=== PATIENT | male | born 1965 | race Caucasian/White ===

== ENCOUNTER 2023-05-21 07:59 | Outpatient (CLI) | payer BC, SELFPAY ==
[2023-05-21 17:39] LABS: Basophils Absolute Auto 0.1 K/mm3 (0.0-0.1); Basophils Percent Auto 0.8 % (0.2-1.2); Eosinophils Absolute Auto 0.2 K/mm3 (0-0.3); Eosinophils Percent Auto 1.9 % (0-4.4); Hemoglobin 11.7 g/dL (14.0-18.0); Immature Granulocyte Absolute 0.02 K/mm3 (0.00-0.031); Immature Granulocyte Percent A 0.2 % (0-0.5); Lymphocytes Absolute Auto 1.35 K/mm3 (0.9-3.2); Lymphocytes Percent Auto 16.1 % (18.3-44.2); Mean Corpuscular HGB Conc 33.4 g/dl (32-36); Mean Corpuscular Hemoglobin 31.8 pg (26-34); Mean Corpuscular Volume 95.1 fl (80-100); Mean Platelet Volume 9.3 fl (7.4-10.4); Monocytes Absolute Auto 0.7 K/mm3 (0.1-0.6); Monocytes Percent Auto 8.3 % (2.6-8.5); Neutrophils Absolute Auto 6.1 K/mm3 (1.3-6.7); Neutrophils Percent Auto 72.7 % (45.5-73.1); Platelet Count Result 355 k/mm3 (150-375); Red Blood Count 3.68 M/mm3 (4.6-6.20); Red Cell Distribution Width 12.1 % (11.5-14.5); White Blood Count 8.4 K/mm3 (4.5-10.0)
[2023-05-21 20:21] LABS: Alanine Aminotransferase 45 U/L (6-50); Albumin Level 4.4 g/dL (3.5-5.1); Alkaline Phosphatase 53 U/L (38-126); Anion Gap 5 mmol/L (8-16); Aspartate Amino Transferase 68 U/L (17-59); Bilirubin,Total 0.3 mg/dL (0.2-1.3); Blood Urea Nitrogen 10 mg/dL (9-20); Calcium 9.1 mg/dL (8.4-10.2); Carbon Dioxide 31 mmol/L (22-30); Chloride 97 mmol/L (98-107); Cholesterol 133 mg/dL (0-200); Estimated Glomerular Filt Rate > 60; Glucose 86 mg/dL (65-110); HDL Direct 49 mg/dL; Potassium 4.4 mmol/L (3.4-5.0); Sodium 133 mmol/L (137-145); Triglycerides 176 mg/dL (<150)
[2023-05-21 20:32] LABS: LDL Cholesterol Direct 50 mg/dL
[2023-05-21 20:52] LABS: Prostate Specific Antigen 0.6 ng/mL (< OR = 4.0)
[2023-05-24 19:38] LABS: Apolipoprotein B 68 mg/dL (<90); CRP, High Sensitivity 6.2 mg/L (***)
[2023-05-26 04:57] LABS: Lipoprotein A 29 nmol/L (<75)
== END 2023-05-21 08:00 | disposition home or self-care (01) ==
LOC: ANHGOSHLAB 08:01
PROVIDERS: PCP Internal Medicine; Visit Provider Internal Medicine
DX: I10 Essential (primary) hypertension (principal); Z13.0 Encounter for screening for diseases of the blood and blood-forming organs and certain disorders involving the immune mechanism; Z13.228 Encounter for screening for other metabolic disorders; Z13.29 Encounter for screening for other suspected endocrine disorder; Z82.49 Family history of ischemic heart disease and other diseases of the circulatory system; Z91.89 Other specified personal risk factors, not elsewhere classified; Z12.5 Encounter for screening for malignant neoplasm of prostate
CPT/HCPCS: 36415; 80053; 80061; 82172; 83695; 84153; 85025; 86141; G0103

== ENCOUNTER 2023-08-14 08:00 | Outpatient (CLI) | payer BC, SELFPAY ==
[2023-08-14 11:38] LABS: Basophils Absolute Auto 0.1 K/mm3 (0.0-0.1); Basophils Percent Auto 1.2 % (0.2-1.2); Eosinophils Absolute Auto 0.1 K/mm3 (0-0.3); Eosinophils Percent Auto 1.9 % (0-4.4); Hematocrit 43.7 % (42.0-52.0); Hemoglobin 14.2 g/dL (14.0-18.0); Immature Granulocyte Absolute 0.02 K/mm3 (0.00-0.031); Immature Granulocyte Percent A 0.3 % (0-0.5); Lymphocytes Absolute Auto 1.33 K/mm3 (0.9-3.2); Lymphocytes Percent Auto 22.8 % (18.3-44.2); Mean Corpuscular HGB Conc 32.5 g/dl (32-36); Mean Corpuscular Hemoglobin 31.6 pg (26-34); Mean Corpuscular Volume 97.1 fl (80-100); Monocytes Absolute Auto 0.5 K/mm3 (0.1-0.6); Monocytes Percent Auto 8.2 % (2.6-8.5); Neutrophils Absolute Auto 3.8 K/mm3 (1.3-6.7); Neutrophils Percent Auto 65.6 % (45.5-73.1); Platelet Count Result 289 k/mm3 (150-375); Red Cell Distribution Width 12.4 % (11.5-14.5); White Blood Count 5.8 K/mm3 (4.5-10.0)
[2023-08-14 12:52] LABS: Alanine Aminotransferase 55 U/L (6-50); Albumin Level 4.6 g/dL (3.5-5.1); Alkaline Phosphatase 48 U/L (38-126); Anion Gap 8 mmol/L (8-16); Aspartate Amino Transferase 81 U/L (17-59); Bilirubin,Total 0.5 mg/dL (0.2-1.3); Blood Urea Nitrogen 14 mg/dL (9-20); Calcium 9.2 mg/dL (8.4-10.2); Carbon Dioxide 31 mmol/L (22-30); Chloride 100 mmol/L (98-107); Estimated Glomerular Filt Rate > 60; Glucose 91 mg/dL (65-110); Potassium 4.8 mmol/L (3.4-5.0); Sodium 139 mmol/L (137-145)
[2023-08-14 13:58] LABS: Folic Acid 5.8 ng/mL (2.76->20)
[2023-08-18 10:20] LABS: CRP, High Sensitivity 0.9 mg/L (***)
== END 2023-08-14 08:01 | disposition home or self-care (01) ==
LOC: ANHGOSHLAB 08:02
PROVIDERS: PCP Internal Medicine; Visit Provider Internal Medicine
DX: D64.9 Anemia, unspecified (principal); E87.1 Hypo-osmolality and hyponatremia; R74.8 Abnormal levels of other serum enzymes; Z91.89 Other specified personal risk factors, not elsewhere classified
CPT/HCPCS: 36415; 80053; 82607; 82728; 82746; 85025; 86141

== ENCOUNTER 2024-08-08 17:08 | Emergency (ER) | payer BC, SELFPAY ==
--- NOTE | ~2024-08-08 | CT_ITS ---
EXAMINATION: CTA chest PE abdomen pel DATE: 08/08/2024 21:52 INDICATION: Chest pain, shortness of breath, dizziness intermittently all summer TECHNIQUE: Computed tomography angiography (CTA) of the chest was performed with 100 mL Omnipaque-350 intravenous contrast timed to evaluate the pulmonary arteries. Coronal maximum intensity projection 3D-reconstructions were created by the technologist. Automated exposure control and iterative reconst ruction technique were employed. Exam dose: 968.86 mGy-cm total exam DLP. COMPARISON: 08/08/2024 PA and lateral chest FINDINGS: There is diagnostic contrast enhancement of the pulmonary arteries and no evidence of pulmo nary embolism. No thoracic aortic aneurysm or dissection. No hilar or mediastinal mass lesion or lymphadenopathy. Normal heart size. No pericardial or pleural effusion. No pulmonary infiltrate or consolidation or pulmonary mass lesion is evident. Mild bilateral gynecomastia. Minimal calcification of the right adrenal gland. Normal morphology of the adrenal glands. No hepatic space-occupying mass lesion. The gallbladder is unremarkable. No bile duct or pancreatic d uct dilatation. No pancreatic mass lesion or calcification. There are multiple calcified splenic gran ulomas. Normal splenic size. No splenic mass lesion. No renal mass lesion or urinary tract calculus or hydroureteronephrosis. The urinary bladder and pros kruse gland are unremarkable. Status post bilateral vasectomy. Small bilateral fat-containing inguinal hernias. Small sliding hiatal hernia. Minimal sigmoid diverticulosis; no CT evidence of diverticulitis. No evidence of appendicitis. No bow el obstruction or intraperitoneal free air. Normal caliber and atherosclerotic calcification of the abdominal aorta. No intraperitoneal or retrop eritoneal or pelvic mass lesion or adenopathy or ascites. Degenerative change of the glenohumeral yen nts and included right acromioclavicular joint. Diffuse idiopathic skeletal hyperostosis of the thoracic spine. No suspicious osteolytic or osteoblastic lesions. IMPRESSION: No evidence of pulmonary embolism Mild bilateral gynecomastia Status post bilateral vasectomy Small sliding hiatal hernia Minimal sigmoid diverticulosis; no evidence of diverticulitis or appendicitis Reviewed, dictated and finalized at [facility]. Reviewed, dictated and finalized at location [facility].
--- NOTE | ~2024-08-08 | XR_ITS ---
XR chest 2V DATE: 08/08/2024 17:58 INDICATION: Chest pain, shortness of breath, dizziness intermittently all summer TECHNIQUE: PA and lateral views COMPARISON: None FINDINGS: Normal heart size. No hilar or mediastinal enlargement. Aortic arch mild calcification. No hilar or mediastinal enlargement. No pulmonary infiltrate or consolidation, pleural effusion or pulmonary vascular congestion or pneumo thorax is detected. Mild degenerative spurring of the thoracic spine. IMPRESSION: No active cardiopulmonary disease Reviewed, dictated and finalized at location [facility].
[2024-08-08 17:22] VITALS: BP 137/109; PULSE 123; RESP 20; TEMP 37.2; O2SAT 100
--- NOTE | 2024-08-08 17:27 | ECG_ITS ---
Test Date: 2024-08-08 17:33:32 Measurements Intervals [place] Rate: 113 P: 120 MO: 163 QRS: 71 QRSD: 75 T: 49 QT: 293 QTc: 402 Interpretive Statements SINUS TACHYCARDIA WITH OCCASIONAL SUPRAVENTRICULAR PREMATURE COMPLEXES BASELINE ARTIFACT- I, II, III, AVR, AVL, V1-V3 ABNORMAL ECG No previous ECG available for comparison Electronically Signed On 08-08-2024 19:57:05 CDT by Vasiliy Rich D.O.
[2024-08-08 17:48] LABS: Basophils Absolute Auto 0.1 K/mm3 (0.0-0.1); Basophils Percent Auto 0.6 % (0.2-1.2); Hematocrit 32.5 % (42.0-52.0); Hemoglobin 10.8 g/dL (14.0-18.0); Immature Granulocyte Absolute 0.07 K/mm3 (0.00-0.031); Immature Granulocyte Percent A 0.5 % (0-0.5); Immature Platelet Fraction Pct 1.7 % (0.9-11.2); Lymphocytes Percent Auto 5.3 % (18.3-44.2); Mean Corpuscular HGB Conc 33.2 g/dl (32-36); Mean Corpuscular Hemoglobin 32.5 pg (26-34); Mean Corpuscular Volume 97.9 fl (80-100); Mean Platelet Volume 9.1 fl (7.4-10.4); Monocytes Absolute Auto 0.5 K/mm3 (0.1-0.6); Neutrophils Absolute Auto 11.9 K/mm3 (1.3-6.7); Neutrophils Percent Auto 89.6 % (45.5-73.1); Platelet Count Result 407 k/mm3 (150-375); Red Blood Count 3.32 M/mm3 (4.6-6.20); Red Cell Distribution Width 13.5 % (11.5-14.5); White Blood Count 13.3 K/mm3 (4.5-10.0)
[2024-08-08 17:56] LABS: INR 1.1; Prothrombin Time 14.2 Seconds (11.1-14.7)
[2024-08-08 17:57] LABS: Partial Thromboplastin Time 31.9 Seconds (22.3-36.8)
[2024-08-08 17:58] LABS: Alanine Aminotransferase 20 U/L (6-50); Alkaline Phosphatase 59 U/L (38-126); Anion Gap 10 mmol/L (4-12); Aspartate Amino Transferase 33 U/L (17-59); Bilirubin,Total 0.7 mg/dL (0.2-1.3); Blood Urea Nitrogen 16 mg/dL (9-20); Calcium 8.5 mg/dL (8.4-10.2); Carbon Dioxide 31 mmol/L (22-30); Chloride 88 mmol/L (98-107); Estimated CRCL calculation 47 ml/min; Estimated Glomerular Filt Rate 45; Glucose 121 mg/dL (65-110); Lipase 57 U/L (23-300); Potassium 3.5 mmol/L (3.4-5.0); Sodium 129 mmol/L (137-145)
[2024-08-08 18:04] LABS: Anisocytosis 1+; Microcytosis 1+ (NORMAL); Platelet Clumps Present; Platelet Estimate Slightly Increased (Adequate); Schistocytes None Seen
[2024-08-08 18:10] LABS: Troponin I < 0.012 ng/mL (0.000-0.034)
[2024-08-08 19:57] VITALS: BP 130/66; PULSE 114; PULSE 117; RESP 19; O2SAT 100; O2SAT 98
[2024-08-08 20:48] LABS: Troponin I < 0.012 ng/mL (0.000-0.034)
--- NOTE | 2024-08-08 21:01 | ECG_ITS ---
Test Date: 2024-08-08 21:01:55 Measurements Intervals [place] Rate: 111 P: 54 MS: 165 QRS: 72 QRSD: 76 T: 61 QT: 329 QTc: 448 Interpretive Statements SINUS TACHYCARDIA ABNORMAL ECG Compared to ECG 08/08/2024 17:33:32 NO SIGNIFICANT CHANGE Electronically Signed On 08-09-2024 10:46:00 CDT by Vasiliy Rich D.O.
--- NOTE | 2024-08-08 21:05 | ED.SOB ---
HPI - SOB/Dyspnea General Chief Complaint: Shortness of Breath/Dyspnea Stated Complaint: SOB and dizziness Time Seen by Provider: 08/08/24 20:18 History of Present Illness HPI Narrative: Patient with history of heavy daily alcohol and tobacco use presents with several months of n/v, epigastric abd pain, and dyspnea on exertion, hasn't been able to keep anything down. Last drink 3 d ago. Related Data Allergies Allergy/AdvReac Type Severity Reaction Status Date / Time No Known Allergies Allergy Unverified 11/04/23 09:04 Review of Systems Review of Systems: All systems reviewed & are unremarkable except as noted in HPI and below PMFSH Past Medical History Medical History Alcohol abuse Anemia Anxiety Coronary artery disease Elevated liver enzymes Family history of premature coronary artery disease Hypertension Hyponatremia Social History Social History Smoking status: Current every day smoker Additional smoking assessment comments: 1/2 pack a day Alcohol intake: current Substance use: never Lack of Transportation: No Lack of Food: Never True Current Housing: I Have Housing Concerned About Future Housing: No Difficulty Paying Gas/Electric Bills: No Difficulty Paying for Meds: No Currently Unemployed: No Education: High School Diploma/GED Difficulty w/ Childcare or Family Care: No Exam Narrative: EXAMINATION OF ORGAN SYSTEMS/BODY AREAS: Constitutional: Vital signs per nursing GENERAL:[No acute distress, non-toxic appearing.] HEAD: Normal with no signs of head trauma. EYES: EOMI, conjunctiva normal ENT: Hearing grossly intact LUNGS: Nonlabored breathing. HEART: Tachycardic ABD: [Soft], [nontender to palpation] EXT: Normal range of motion SKIN: [No rashes or lesions.] NEURO: [Alert and oriented x 3. No gross focal sensory or strength deficits.] Some slight tremors. PSYCH: Normal affect Course Vital Signs Vital signs: Vital Signs Temperature 99 F 08/08/24 17:22 Pulse Rate 123 H 08/08/24 17:22 Respiratory Rate 20 08/08/24 17:22 Blood Pressure 137/109 H 08/08/24 17:22 Pulse Oximetry 100 08/08/24 17:22 Oxygen Delivery Room Air 08/08/24 17:22 Temperature 99 F 08/08/24 17:22 Pulse Rate 99 08/08/24 23:22 Respiratory Rate 17 08/08/24 23:22 Blood Pressure 137/78 08/08/24 23:22 Pulse Oximetry 97 08/08/24 23:22 Oxygen Delivery Room Air 08/08/24 19:57 MDM - SOB/Dyspnea MDM Narrative Medical decision making narrative: Patient presents here for nausea vomiting, epigastric pain for months, along with some increased dyspnea on exertion, does report chronic alcohol use and tobacco use, but differential includes withdrawal, gastritis from alcohol or cirrhosis, also considered malignancy. A slightly tremulous and last was 3 days ago so small dose of Ativan given, along with Zofran and for this. On re-evaluation patient states he feels much better and is now not having any symptoms. Extensive workup did review slightly lower hemoglobin though he denies any bloody stools, normal LFTs and troponin, CT of his chest, abdomen, pelvis without obvious signs liver cirrhosis or pulmonary nodules, I did have a long discussion with the patient and his at bedside, regarding the findings and limitations of our workup today, patient committed to continuing to quit alcohol use, is agreeable to trying Librium taper, I did bedside instruction on use and he and feel comfortable with a taper, I did let him know that if they had any further issues or questions they can always return to the emergency room. I will have him follow up with GI, and given prescriptions for the Librium, also Pepcid and Zofran as needed. Lab Data 08/08/24 17:41 08/08/24 17:41 Labs: Lab Results 08/08/24 08/08/24 Range/Units 17:41 20:0
[2024-08-08 21:09] LABS: D Dimer 2.54 ug/mL (<0.48)
[2024-08-08] MEDS: ONDANSETRON INJ 4 MG/2 ML VIAL IV PUSH (21:11)
[2024-08-08] MEDS: LORazepam INJ (*CRX) 2 MG/ML VIAL 1 MG IV PUSH (21:12)
[2024-08-08] MEDS: FAMOTIDINE 20 MG/2 ML VIAL IV PUSH (21:12)
[2024-08-08] MEDS: LACTATED RINGERS 1,000 ML 999 ML IV CONT ×2 (21:12→22:50)
[2024-08-08 22:09] VITALS: BP 138/77; PULSE 104; RESP 18; O2SAT 96
[2024-08-08 23:22] VITALS: BP 137/78; PULSE 99; RESP 17; O2SAT 97
--- NOTE | 2024-08-08 23:34 | PC.NURSE ---
Assumed care of pt after receiving report from KEKE De La Cruz @ [id number]
== END 2024-08-08 23:30 | disposition home or self-care (01) ==
PROVIDERS: Student in an Organized Health Care Education/Training Program; Emergency Provider Emergency Medicine; PCP Family Medicine
DX: F10.10 Alcohol abuse, uncomplicated (principal); R11.2 Nausea with vomiting, unspecified; R06.00 Dyspnea, unspecified; E86.0 Dehydration; F17.210 Nicotine dependence, cigarettes, uncomplicated; D64.9 Anemia, unspecified; F41.9 Anxiety disorder, unspecified; I25.10 Atherosclerotic heart disease of native coronary artery without angina pectoris; I10 Essential (primary) hypertension
CPT/HCPCS: 36415; 71046; 71275; 74177; 80053; 83690; 84484; 85025; 85055; 85380; 85610; 85730; 93005; 96361; 96374; 96375; 99284; J2060; J2405; J7120; Q9967

== ENCOUNTER 2024-08-12 10:26 | Inpatient (IN) | payer BC, SELFPAY ==
[2024-08-12] VITALS (13 sets, daily range): BP systolic 95–133; BP diastolic 50–77; PULSE 85–96; RESP 16–22; TEMP 35.7–38.4; O2SAT 91–100; BMI 26.1
--- NOTE | ~2024-08-12 | XR_ITS ---
EXAMINATION: XR chest 1V portable DATE: 08/12/2024 10:55 INDICATION: Perirectal abscess. TECHNIQUE: A single frontal view of the chest was obtained on 2 radiographs. COMPARISON: Chest 2 views 08/08/2024 FINDINGS: There is no pneumonia, pleural effusion, or pneumothorax. The heart size is normal. IMPRESSION: 1. No acute cardiopulmonary disease. Reviewed, dictated and finalized at location A.
--- NOTE | 2024-08-12 10:30 | ADMGEN ---
This patient, Errol Layne, was admitted to [facility] Room 330-01. Patient/family oriented to hospital policies and general routines including ID bracelet, bed and alarms, visiting hours, pain management, procedures, bathroom and other care routines, personal items, smoking policy, room service/diet, and visiting hours. Information on how to activate the Rapid Response Team has been discussed. Patient/Family are encouraged to report perceived risks to care and to ask questions if they do not understand what they are told or what they should do.
--- NOTE | 2024-08-12 10:37 | ECG_ITS ---
Test Date: 2024-08-12 11:07:59 Measurements Intervals [place] Rate: 95 P: 57 VA: 173 QRS: 75 QRSD: 90 T: 52 QT: 347 QTc: 438 Interpretive Statements SINUS RHYTHM NORMAL ECG Compared to ECG 08/08/2024 21:01:55 HEART RATE HAS DECREASED Electronically Signed On 08-12-2024 11:15:11 CDT by Vasiliy Rich D.O.
[2024-08-12 11:12] LABS: Hematocrit 28.4 % (42.0-52.0); Hemoglobin 9.7 g/dL (14.0-18.0); Mean Corpuscular HGB Conc 34.2 g/dl (32-36); Mean Corpuscular Hemoglobin 32.1 pg (26-34); Mean Platelet Volume 9.6 fl (7.4-10.4); Platelet Count Result 308 k/mm3 (150-375); Red Blood Count 3.02 M/mm3 (4.6-6.20); Red Cell Distribution Width 13.6 % (11.5-14.5); White Blood Count 11.8 K/mm3 (4.5-10.0)
[2024-08-12 11:27] LABS: Alanine Aminotransferase 100 U/L (6-50); Albumin Level 3.3 g/dL (3.5-5.1); Alkaline Phosphatase 72 U/L (38-126); Anion Gap 9 mmol/L (4-12); Aspartate Amino Transferase 76 U/L (17-59); Bilirubin,Total 0.7 mg/dL (0.2-1.3); Blood Urea Nitrogen 17 mg/dL (9-20); Calcium 8.3 mg/dL (8.4-10.2); Carbon Dioxide 28 mmol/L (22-30); Chloride 94 mmol/L (98-107); Estimated Glomerular Filt Rate 48; Glucose 110 mg/dL (65-110); Potassium 3.4 mmol/L (3.4-5.0); Sodium 131 mmol/L (137-145)
[2024-08-12 11:28] LABS: INR 1.2; Prothrombin Time 15.3 Seconds (11.1-14.7)
[2024-08-12 11:29] LABS: Partial Thromboplastin Time 31.7 Seconds (22.3-36.8)
[2024-08-12] MEDS: DEXTROSE 5%/LACTATED RINGERS 1,000 ML 80 ML IV CONT (11:33)
[2024-08-12] MEDS: PIPERACILLN/TAZ 3.375GM/NS50ML 3.375 GM/50 ML BAG IVPB ×2 (11:35→17:49)
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
--- NOTE | 2024-08-12 13:50 | PC.NURSE ---
Patient off floor to surgery via stretcher. Report given to Goldie DAVIES.
[2024-08-12] MEDS: LACTATED RINGERS 1,000 ML 30 ML IV CONT ×2 (14:00→16:00)
[2024-08-12] MEDS: MORPHINE SULFATE (*CRX) 4 MG/ML INJ IV PUSH (14:08)
--- NOTE | 2024-08-12 14:27 | WPDHPUPDATE1 ---
History and Physical Update Update Date/Time: 08/12/24 14:27 History and Physical has been reviewed, including an updated exam of the patient. There are NO changes in the patient's condition. Risks, benefits, and alternatives have been discussed and questions answered. Patient agrees to proceed with procedure.
--- NOTE | 2024-08-12 14:28 | WPDANESEPPF ---
Anes - Initial Pre Proc Eval Procedure: Operation Date: 08/12/24 16:00 Proposed Procedures p Incision and Drainage Amy-Rectal Abscess - Bismark Sandra MD Date/Time: 08/12/24 14:28 Surgeon: Bismark Sandra MD Pre Op Diagnosis: complex amy rectal abscess Patient Data Age: 59 Gender: M Height: 1.78 m Weight: 82.6 kg Last Vital Signs Temp 38.4 C H 08/12/24 14:18 Pulse 94 08/12/24 14:18 Resp 18 08/12/24 14:18 BP 103/67 08/12/24 14:18 Pulse Ox 95 08/12/24 14:18 O2 Del Method Room Air 08/12/24 14:18 Allergies Allergy/AdvReac Type Severity Reaction Status Date / Time No Known Allergies Allergy Verified 08/12/24 14:15 Home Medications Medication Instructions Recorded Confirmed Type lisinopril 20 mg tablet 20 mg PO DAILY #90 tabs 11/04/23 08/12/24 Rx rosuvastatin 20 mg tablet (Crestor) 20 mg PO DAILY #90 tabs 11/04/23 08/12/24 Rx propranolol 20 mg tablet 20 mg PO ONCE #30 tabs 11/18/23 08/12/24 Rx chlordiazepoxide HCl 25 mg capsule 25 mg PO Q6-12H PRN alcohol 08/08/24 08/12/24 Rx withdrawal #15 caps famotidine 20 mg tablet 20 mg PO DAILY #30 tabs 08/08/24 08/12/24 Rx ondansetron 4 mg disintegrating 4 mg PO Q8H PRN nausea and 08/08/24 08/12/24 Rx tablet vomiting #10 tabs Laboratory Tests 08/12/24 11:05 WBC 11.8 H K/mm3 (4.5-10.0) RBC 3.02 L M/mm3 (4.6-6.20) Hgb 9.7 L g/dL (14.0-18.0) Hct 28.4 L % (42.0-52.0) MCV 94.0 fl (80-100) MCH 32.1 pg (26-34) MCHC 34.2 g/dl (32-36) RDW 13.6 % (11.5-14.5) Plt Count 308 k/mm3 (150-375) MPV 9.6 fl (7.4-10.4) PT 15.3 H Seconds (11.1-14.7) INR 1.2 APTT 31.7 Seconds (22.3-36.8) Sodium 131 L mmol/L (137-145) Potassium 3.4 mmol/L (3.4-5.0) Chloride 94 L mmol/L (98-107) Carbon Dioxide 28 mmol/L (22-30) Anion Gap 9 mmol/L (4-12) BUN 17 mg/dL (9-20) Creatinine 1.50 H mg/dL (0.7-1.3) Estim Creat Clear Calc Not Reportable Estimated GFR 48 L (59 - ) Glucose 110 mg/dL (65-110) Calcium 8.3 L mg/dL (8.4-10.2) Total Bilirubin 0.7 mg/dL (0.2-1.3) AST 76 H U/L (17-59) ALT 100 H U/L (6-50) Alkaline Phosphatase 72 U/L (38-126) Total Protein 7.0 g/dL (6.3-8.2) Albumin 3.3 L g/dL (3.5-5.1) Patient hx anesthesia problems: none Family hx anesthesia problems: none Results Review: All pre-operative results and documents have been reviewed as part of the pre-operative evaluation. COUNTS INCLUDE 234 BEDS AT THE [facility] Past Medical History Medical History Alcohol abuse Anemia Anxiety Coronary artery disease Elevated liver enzymes Family history of premature coronary artery disease Hypertension Hyponatremia Surgical History Surgical History History of shoulder surgery x5 Social History Social History Smoking status: Former smoker Tobacco type: cigarettes Alcohol intake: current Drinks per week: 80 Substance use: never Last use: Last drink was 08/06/24 Do You Feel Safe in your Home?: Yes Lack of Transportation: No Lack of Food: Never True Current Housing: I Have Housing Concerned About Future Housing: No Difficulty Paying Gas/Electric Bills: No Difficulty Paying for Meds: No Currently Unemployed: No Education: High School Diploma/GED Difficulty w/ Childcare or Family Care: No Spiritual care concerns: No Anes - Eval Final PreProcedure Day of Procedure 08/12/24 14:28 Patient weight: overweight Heart: regular rate and rhythm Lungs: clear to auscultation Airway: Mallampati scale class II Neurological: alert and oriented Last oral intake: >/= 8 hours ASA classification: III Emergent: yes Anesthetic plan: proceed Anesthesia type and monitoring: general ETT and standard monitoring
[2024-08-12 16:35] LABS: Procalcitonin 5.7 ng/mL
--- NOTE | 2024-08-12 17:18 | P.OP_ITS ---
Procedure Note - Detailed Date of Procedure 08/12/24 Pre-op Diagnosis Perirectal abscess Post-op Diagnosis Other (Perirectal abscess with fistula in ANO) Procedure Performed Incision and drainage perirectal abscess with placement of seton. Surgeon Bismark Sandra MD [employer] Kamala Falcon [facility] Anesthesia General Indications Patient has a 59-year-old man who has had rectal pain and a swollen tender area for the last 4 days. He has also had shaking chills and felt feverish. He was seen in the office today and found to have a large left anterior quadrant perirectal abscess. He also has a history of heavy alcohol use and stopping alcohol about 1 week ago. He has been admitted for IV antibiotics, incision and drainage of the perirectal abscess, and management of any withdrawal symptoms. He is taken to surgery now for incision and drainage of the abscess. Findings Left anterior quadrant perirectal abscess that communicated with an internal opening in the anterior midline. This was not a superficial communication but it did appear to be intersphincteric. Seton was placed to manage this. Description of Procedure Patient was taken to surgery and induced into general anesthesia. He was then placed in prone doe-knife position. The buttocks were taped apart. Prep and drape was carried out. The Hill-Farias anoscope was placed in the rectum and gentle pressure placed over the abscess. Purulent fluid came forth from the internal opening. I made a cruciate incision over the fluctuant area of the abscess. Abundant purulent fluid came forth. This pocket extended to the anterior midline which was where most of the purulent fluid was located. Loculations were broken up and the purulent fluid was suctioned away completely. I then used a rectal probe and found a direct communication from the abscess to the internal opening on the anterior midline. I placed a fine tip clamp through and then placed a red vessel loop to use as a seton. The vessel loop was tied to itself to make a ring. We inspected the inguinal canal again and found no further evidence of pathology. The abscess pocket was packed with 1 in iodoform Nu Gauze. Rectum was then dressed with bulky fluffs, ABDs, and tape. Patient was returned to the supine position, awakened and taken to recovery in good condition. Sponge needle counts were correct x2. Estimated Blood Loss -5 Urine Output 1 Drains Yes (Seton) Packing Yes (1 in iodoform Nu Gauze) Pathology None sent Complications None Condition Stable Disposition PACU [facility] Billing Surgery - Charge Forward: Surgery Billing (Incision and drainage complex perirectal abscess with placement of seton.)
--- NOTE | 2024-08-12 17:27 | PC.NURSE ---
Patient returned to floor from PACU via stretcher. No complaints at this time.
[2024-08-12 18:34] LABS: Glucose Point of Care 125 mg/dl (65-105)
[2024-08-12] MEDS: oxyCODONE/ACETAMINOPHEN (*CRX) 10-325 MG TABLET 1 TAB PO (21:11)
[2024-08-13] VITALS (12 sets, daily range): BP systolic 103–133; BP diastolic 61–83; PULSE 64–78; RESP 14–22; TEMP 35.2–36.7; O2SAT 94–100; BMI 26.1
[2024-08-13] MEDS: PIPERACILLN/TAZ 3.375GM/NS50ML 3.375 GM/50 ML BAG IVPB ×4 (00:29→17:53)
[2024-08-13 00:41] LABS: Glucose Point of Care 172 mg/dl (65-105)
[2024-08-13] MEDS: oxyCODONE/ACETAMINOPHEN (*CRX) 5-325 MG TABLET 1 TABLET PO ×3 (01:33→20:50)
[2024-08-13] MEDS: DEXTROSE 5%/LACTATED RINGERS 1,000 ML 80 ML IV CONT (05:25)
[2024-08-13 06:28] LABS: Basophils Percent Auto 0.2 % (0.2-1.2); Hematocrit 28.8 % (42.0-52.0); Hemoglobin 9.4 g/dL (14.0-18.0); Immature Granulocyte Absolute 0.09 K/mm3 (0.00-0.031); Lymphocytes Absolute Auto 0.54 K/mm3 (0.9-3.2); Mean Corpuscular HGB Conc 32.6 g/dl (32-36); Mean Corpuscular Hemoglobin 31.6 pg (26-34); Mean Platelet Volume 10.4 fl (7.4-10.4); Monocytes Absolute Auto 0.4 K/mm3 (0.1-0.6); Monocytes Percent Auto 4.7 % (2.6-8.5); Neutrophils Percent Auto 88.1 % (45.5-73.1); Platelet Count Result 313 k/mm3 (150-375); Red Blood Count 2.97 M/mm3 (4.6-6.20); Red Cell Distribution Width 13.8 % (11.5-14.5); White Blood Count 9.1 K/mm3 (4.5-10.0)
[2024-08-13 06:42] LABS: Alanine Aminotransferase 74 U/L (6-50); Albumin Level 3.3 g/dL (3.5-5.1); Alkaline Phosphatase 58 U/L (38-126); Anion Gap 10 mmol/L (4-12); Aspartate Amino Transferase 40 U/L (17-59); Bilirubin,Total 0.3 mg/dL (0.2-1.3); Blood Urea Nitrogen 15 mg/dL (9-20); Calcium 8.5 mg/dL (8.4-10.2); Carbon Dioxide 28 mmol/L (22-30); Chloride 97 mmol/L (98-107); Estimated CRCL calculation 62 ml/min; Estimated Glomerular Filt Rate > 60; Glucose 144 mg/dL (65-110); Potassium 3.7 mmol/L (3.4-5.0); Sodium 135 mmol/L (137-145)
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
[2024-08-13 09:44] LABS: Toxigenic C. Diff NEGATIVE (NEGATIVE)
[2024-08-13] MEDS: THIAMINE HCL 200 MG/2 ML VIAL 100 MG IV PUSH (09:50)
[2024-08-13] MEDS: lisinopriL 20 MG TABLET PO (09:51)
[2024-08-13] MEDS: ROSUVASTATIN 20 MG TABLET PO (09:51)
[2024-08-13] MEDS: FAMOTIDINE 20 MG TABLET PO (09:51)
[2024-08-13] MEDS: ENOXAPARIN 40 MG/0.4 ML SYRINGE SUB-Q (09:52)
--- NOTE | 2024-08-13 09:57 | PC.NURSE ---
call to pharm for missing folic acid dose
[2024-08-13] MEDS: FOLIC ACID 1 MG/0.2 ML INJ IV PUSH (11:32)
[2024-08-13 12:11] LABS: Glucose Point of Care 143 mg/dl (65-105)
--- NOTE | 2024-08-13 14:57 | PM.PNGS ---
Progress Note: A&P Assessment and Plan (1) Perirectal abscess: Code(s): K61.1 - Rectal abscess Status: Acute Assessment and Plan: Wound looks good after incision and drainage with placement of seton yesterday. He is still pretty weak and needs assistance with ambulation and getting out of bed. Continue IV antibiotics. Doing much better than yesterday. Explained that he will need to be on Sitz baths at home and keep a gauze pad over rectum at all times except when bathing showering or having bowel movement. (2) Chills with fever: Code(s): R50.9 - Fever, unspecified Status: Resolved Assessment and Plan: Resolved after abscess drainage yesterday. (3) Alcohol withdrawal: Qualifiers: Complication of substance-induced condition: uncomplicated Qualified Code(s): F10.930 - Alcohol use, unspecified with withdrawal, uncomplicated Code(s): F10.939 - Alcohol use, unspecified with withdrawal, unspecified Status: Acute Assessment and Plan: Appreciate hospitalist's care Subjective Subjective Date/Time Seen: 08/13/24 06:57 Post Op day: 1 Patient reports: feels better, pain is less (Pain essentially gone), voiding w/o difficulty, no bowel movement and afebrile (No more shaking chills either) Interval history: Patient feels much better this morning than he did yesterday. He slept well through the night. He has no nausea and minimal rectal discomfort. Exam Const: General: cooperative, comfortable, alert, awake and tired appearing GI: Rectal Exam: abscess (Packing removed, seton in place, no purulent drainage.) Other: Abscess wound looks good. No bleeding or purulent drainage. Seton is in place. No bruising or hematoma noted. Objective Data Vital Signs Vital Signs: Vital Signs - 24 hr 08/12/24 16:00 08/12/24 16:15 08/12/24 16:22 Temperature 37.0 C Pulse Rate 85 90 Respiratory Rate 20 22 H Blood Pressure 95/52 L 127/74 Pulse Oximetry 100 100 Oxygen Delivery Simple Face Mask Simple Face Mask Room Air Oxygen Flow Rate 6 6 08/12/24 16:30 08/12/24 16:45 08/12/24 17:00 Temperature Pulse Rate 94 91 92 Respiratory Rate 22 H 22 H 22 H Blood Pressure 113/70 117/66 106/70 Pulse Oximetry 92 94 94 Oxygen Delivery Room Air Room Air Room Air Oxygen Flow Rate 08/12/24 17:15 08/12/24 17:30 08/12/24 17:30 Temperature Pulse Rate 92 Respiratory Rate 22 H Blood Pressure 110/70 110/70 Pulse Oximetry 94 Oxygen Delivery Room Air Room Air Oxygen Flow Rate 08/12/24 17:31 08/12/24 18:01 08/12/24 20:00 Temperature 35.9 C L 35.7 C L Pulse Rate 93 85 Respiratory Rate 16 16 Blood Pressure 117/67 102/71 Pulse Oximetry 96 93 Oxygen Delivery Room Air Oxygen Flow Rate 08/12/24 20:05 08/13/24 00:30 08/13/24 05:30 Temperature 36.6 C 35.9 C L 35.8 C L Pulse Rate 86 69 64 Respiratory Rate 16 18 14 Blood Pressure 97/58 L 124/79 118/76 Pulse Oximetry 92 94 97 Oxygen Delivery Oxygen Flow Rate 08/13/24 07:01 08/13/24 10:17 08/13/24 11:37 Temperature 35.2 C L 35.7 C L Pulse Rate 65 Respiratory Rate 16 Blood Pressure 133/77 Pulse Oximetry 100 Oxygen Delivery Oxygen Flow Rate 08/13/24 08:00 08/13/24 08:00 08/13/24 12:00 Temperature 36.1 C L Pulse Rate 64 Respiratory Rate 16 Blood Pressure 133/77 103/61 Pulse Oximetry 96 Oxygen Delivery Room Air Oxygen Flow Rate Intake/Output Intake/Output: Intake & Output 08/10/24 08/11/24 08/12/24 08/13/24 23:59 23:59 23:59 23:59 Intake Total 1120 2326 Output Total 2 800 Balance 1118 1526 Meds/Results Medications: Active Medications Generic Name Dose Route Start Last Admin Trade Name Freq PRN Reason Stop Dose Admin Acetaminophen 500 mg 08/12/24 17:16 Acetaminophen 500 Mg Tablet PO Q6H PRN Pain Rated 1-3 Chlordiazepoxide HCl 25 mg 08/12/24 13:44 Chlordiazepoxide (*Crx) 25 Mg Capsul
[2024-08-13 18:29] LABS: Glucose Point of Care 150 mg/dl (65-105)
[2024-08-13 23:38] LABS: Glucose Point of Care 135 mg/dl (65-105)
[2024-08-14] MEDS: PIPERACILLN/TAZ 3.375GM/NS50ML 3.375 GM/50 ML BAG IVPB ×2 (00:22→05:51)
[2024-08-14 03:40] VITALS: BP 99/60; PULSE 63; RESP 20; TEMP 36.8; O2SAT 95
[2024-08-14 08:00] VITALS: BP 122/77; PULSE 70; RESP 16; TEMP 36.3; O2SAT 99
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
[2024-08-14] MEDS: THIAMINE HCL 200 MG/2 ML VIAL 100 MG IV PUSH (10:05)
[2024-08-14] MEDS: FAMOTIDINE 20 MG TABLET PO (10:06)
[2024-08-14] MEDS: ROSUVASTATIN 20 MG TABLET PO (10:06)
[2024-08-14] MEDS: lisinopriL 20 MG TABLET PO (10:06)
[2024-08-14] MEDS: ENOXAPARIN 40 MG/0.4 ML SYRINGE SUB-Q (10:07)
[2024-08-14] MEDS: FOLIC ACID 1 MG/0.2 ML INJ IV PUSH (10:08)
[2024-08-14 10:11] VITALS: O2SAT 94
--- NOTE | 2024-08-14 10:31 | PM.DS ---
DS: Admitting Diagnosis Discharge Date 08/14/2024 Admitting Diagnosis Perirectal abscess, chills with fever, alcohol withdrawal, hypertension DS: Discharge Diagnosis Discharge Diagnosis (1) Perirectal abscess: Code(s): K61.1 - Rectal abscess Status: Acute (2) Alcohol withdrawal: Qualifiers: Complication of substance-induced condition: uncomplicated Qualified Code(s): F10.930 - Alcohol use, unspecified with withdrawal, uncomplicated Code(s): F10.939 - Alcohol use, unspecified with withdrawal, unspecified Status: Acute DS: Summary Hospital Course Reason for hospitalization: Perirectal abscess Hospital Course: This is a 59-year-old man who presented to the office on 08/12/2024 with rectal pain and swelling. He was found to have a large perirectal abscess. He also has a long history of alcohol abuse and has been quitting drinking and showing some signs of alcohol withdrawal. The patient was taken emergently for incision and drainage of perirectal abscess with placement of seton on 08/12/2024. Patient was then admitted to the hospital postoperatively. He was kept on antibiotics and hospitalist was consulted to help assist with alcohol withdrawal symptoms. He was placed on CIWA protocol and monitored for any worsening signs of alcohol withdrawal. On postop day 1, the wound was showing signs of improvement. Meter he was no longer having any fevers. Pain was nearly resolved. On postop day 2 he was continuing to improve and was tolerating his diet and remaining hemodynamically stable. He was discharged on postop day 2. Status at Discharge Functional status at discharge: independent ambulation Overall status at discharge: patient is progressing back to baseline Time Spent with Patient Time attestation: Total time spent providing and/or coordinating discharge services: Time spent: Less than 30 minutes Exam Const: General: comfortable and no acute distress Orientation/consciousness: patient oriented x3 GI: Other: Red vessel loop seton drain in place. Minimal scant serous and purulence drainage. No significant surrounding erythema or induration. DS: Data Data Completed and Pending Labs on day of discharge: Labs from last 24 hours 08/13/24 08/13/24 08/13/24 23:32 18:25 11:58 POC Capillary Glucose 135 H 150 H 143 H Imaging Radiologist's impression: ITS Impressions Chest X-Ray 08/12/24 11:31 IMPRESSION: 1. No acute cardiopulmonary disease. Discharge Plan Discharge Attending physician on discharge: Bismark Sandra Consulting providers: Shayne Patel Discharging Clinician: Placido Grimaldo Patient Disposition: Home, Self-Care Activity: may shower Diet: regular Wound Care Instructions: other - see discharge instructions Discharge Instructions: Discharge Instructions for Anorectal Surgery Dr. Sandra 1. May discharge from Outpatient Surgery area or Surgical Floor when stable per protocol. 2. Activity: Remove dressing and start Sitz baths in a.m. following surgery. Once at home, all patients should take 10-20 minute Sitz baths at least two times per day and as needed after each bowel movement. Rest around the house for the next 1-2 days, taking frequent walks. No driving for 2-3 days or while taking narcotic pain medications. 3. Diet: Regular diet with 6-8 glasses of water per day. Eat plenty of fruits and vegetables. 4. Medications: ? Resume all home medications. ? Metamucil 1 tablespoon PO twice a day ? Mineral Oil 1 tablespoon PO twice a day ? Percocet 5/325 0.5 PO q 4 hours as needed for moderate pain. ? Percocet 5/325 1 PO q 6 hours as needed for severe pain. ? Toradol 10 mg PO q
[2024-08-14] MEDS: oxyCODONE/ACETAMINOPHEN (*CRX) 5-325 MG TABLET 1 TABLET PO (10:32)
[2024-08-14 10:34] LABS: Hematocrit 26.3 % (42.0-52.0); Hemoglobin 8.6 g/dL (14.0-18.0); Mean Corpuscular HGB Conc 32.7 g/dl (32-36); Mean Corpuscular Hemoglobin 31.3 pg (26-34); Mean Corpuscular Volume 95.6 fl (80-100); Mean Platelet Volume 10.2 fl (7.4-10.4); Platelet Count Result 419 k/mm3 (150-375); Red Blood Count 2.75 M/mm3 (4.6-6.20); Red Cell Distribution Width 14.2 % (11.5-14.5); White Blood Count 8.1 K/mm3 (4.5-10.0)
[2024-08-14 10:45] LABS: Potassium 3.2 mmol/L (3.4-5.0)
[2024-08-14 10:47] LABS: Anion Gap 6 mmol/L (4-12); Blood Urea Nitrogen 14 mg/dL (9-20); Calcium 8.2 mg/dL (8.4-10.2); Carbon Dioxide 29 mmol/L (22-30); Chloride 97 mmol/L (98-107); Estimated CRCL calculation 67 ml/min; Estimated Glomerular Filt Rate > 60; Glucose 115 mg/dL (65-110); Sodium 132 mmol/L (137-145)
== END 2024-08-14 11:23 | disposition home or self-care (01) | DRG 348 ==
PROVIDERS: Nurse Practitioner; Student in an Organized Health Care Education/Training Program; Admitting Provider Surgery; PCP Family Medicine; Visit Provider Surgery
PROC: 0D9 Gastrointestinal System, Drainage (ICD-10-PCS; CPT 46040; principal; 2024-08-12 16:00)
DX: K61.4 Intrasphincteric abscess (principal); E87.1 Hypo-osmolality and hyponatremia; F10.139 Alcohol abuse with withdrawal, unspecified; F41.9 Anxiety disorder, unspecified; D64.9 Anemia, unspecified; I25.10 Atherosclerotic heart disease of native coronary artery without angina pectoris; I10 Essential (primary) hypertension; Z87.891 Personal history of nicotine dependence
CPT/HCPCS: 36415; 71045; 80048; 80053; 82948; 84145; 85025; 85027; 85610; 85730; 87493; 93005; A9270; J1100; J1650; J2250; J2270; J2371; J2405; J2543; J2704; J3411; J7120; J7121

== ENCOUNTER 2024-09-03 04:46 | Day surgery (SDC) | payer BC, SELFPAY ==
[2024-09-02 12:43] VITALS: BMI 26.3
--- NOTE | 2024-09-02 12:44 | PC.NURSE ---
Addendum entered by Neymar Caro RN 09/02/24 13:34: Correction: Patient was told nothing to eat or drink after midnight. After consulting with Agnieszka who consulted Dr Sandra, patient was told no laxative or enema's required. Original Note: Report to the Outpatient Waiting Room, entrance under the green pavilion located off [facility], at time _1030_ on date _[id number]_. Planned Procedure Time: _1230_.? Time changes happen often and if your time is changed the preop area will call you the afternoon before. - You and your visitor will be asked to self-screen and do not enter if you have any COVID symptoms. Please call surgeon if you need to reschedule. - A mask is optional within the hospital at this time. Patients may have clear liquids (water, carbonated beverages, clear teas, apple juice) until 3 hours prior to surgery with a maximum of 20 ounces. - No food from midnight until time of surgery and no smoking Take only the following medications with a SIP of water on the morning of surgery: __Cefuroxime DO NOT STOP ANY OF YOUR OTHER PRESCRIPTION MEDICATIONS PRIOR TO SURGERY EXCEPT THE FOLLOWING Medications to discontinue per physician ____None Please no make-up, nail macedonian, hairspray, perfume, deodorant, or body powder the day of surgery.? No jewelry (including any body piercings) or valuables the day of surgery, leave them at home.? Please take a shower or bath the night before, or the morning of, surgery with an antibacterial soap.? Wear comfortable, loose fitting clothing.? . - Jewelry must be removed prior to entering the operating room.? Rings and piercings that are not removed may be cut off. - The hospital will not accept responsibility for valuables.? - Please leave all valuables, including medications, at home the day of surgery. If you are going home after surgery, a licensed test car driver must drive you home.? - NO public transportation without another adult if you receive anesthesia. - We recommend that an adult stay with you for 24 hours following discharge. - We also recommend that you do not drive, make important decision, drink alcoholic beverages, or take any drugs that were not prescribed by your health care provider for at least 24 hours after your discharge time. Follow any additional instructions given to you from your surgeon. Telephone instructions given to __Errol__and asked if any additional questions and then verbalized understanding. Patient advised to call surgeon office or pre surgery nurse liaison [phone] if any additional questions.
[2024-09-03] VITALS (9 sets, daily range): BP systolic 108–154; BP diastolic 75–86; PULSE 59–82; RESP 12–18; TEMP 36.3–36.4; O2SAT 100
[2024-09-03] MEDS: ACETAMINOPHEN 500 MG TABLET 1000 MG PO (11:00)
[2024-09-03] MEDS: KETOROLAC 15 MG/ML VIAL (*BKC) IV PUSH (11:05)
[2024-09-03] MEDS: LACTATED RINGERS 1,000 ML 30 ML IV CONT (11:05)
--- NOTE | 2024-09-03 11:51 | WPDANESEPPF ---
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 Patient Data Age: 59 Gender: M Height: 1.78 m Weight: 83.2 kg Last Vital Signs Temp 97.3 F L 09/03/24 10:54 Pulse 82 09/03/24 10:54 Resp 18 09/03/24 10:54 BP 134/80 09/03/24 10:54 Pulse Ox 100 09/03/24 10:54 O2 Del Method Room Air 09/03/24 10:54 Allergies Allergy/AdvReac Type Severity Reaction Status Date / Time No Known Allergies Allergy Verified 09/03/24 10:50 Home Medications Medication Instructions Recorded Confirmed Type lisinopril 20 mg tablet 20 mg PO DAILY #90 tabs 11/04/23 09/03/24 Rx rosuvastatin 20 mg tablet (Crestor) 20 mg PO DAILY #90 tabs 11/04/23 09/03/24 Rx cefuroxime axetil 500 mg tablet 500 mg PO BID 09/02/24 09/03/24 History Patient hx anesthesia problems: none Family hx anesthesia problems: none Results Review: All pre-operative results and documents have been reviewed as part of the pre-operative evaluation. [facility] Past Medical History Medical History Alcohol abuse Anemia Anxiety Coronary artery disease Elevated liver enzymes Family history of premature coronary artery disease Hypertension Hyponatremia Surgical History Surgical History History of incision and drainage 08/12/24 Incision and drainage perirectal abscess with placement of seton. Dr. Sandra History of shoulder surgery x5 Social History Social History Smoking status: Never smoker Tobacco type: cigarettes Smokeless tobacco user: chewing tobacco Alcohol intake: former Drinks per week: 80 Alcohol use details: None 5 weeks. Substance use: never Last use: Last drink was 08/06/24 Do You Feel Safe in your Home?: Yes Lack of Transportation: No Lack of Food: Never True Current Housing: I Have Housing Concerned About Future Housing: No Difficulty Paying Gas/Electric Bills: No Difficulty Paying for Meds: No Currently Unemployed: No Education: High School Diploma/GED Difficulty w/ Childcare or Family Care: No Living arrangements: with family Spiritual care concerns: No Anes - Eval Final PreProcedure Day of Procedure 09/03/24 11:51 Patient weight: overweight Heart: regular rate and rhythm Lungs: clear to auscultation Airway: Mallampati scale class II Neurological: alert and oriented Last oral intake: >/= 8 hours ASA classification: III Emergent: no Anesthetic plan: proceed Anesthesia type and monitoring: general ETT and standard monitoring Results Review: All pre-operative results and documents have been reviewed as part of the pre-operative evaluation. HTN, hyperlipidemia, prev smoker, pt reports he drank ETOH excessively but none in the last 4 months. Informed Consent: The patient's anesthetic plan and its attendant risks and benefits were discussed with the patient/family/POA. Questions were solicited and answers provided to the satisfaction of the patient/family/POA.
--- NOTE | 2024-09-03 12:24 | WPDHPUPDATE1 ---
History and Physical Update Update Date/Time: 09/03/24 12:24 History and Physical has been reviewed, including an updated exam of the patient. There are NO changes in the patient's condition. Risks, benefits, and alternatives have been discussed and questions answered. Patient agrees to proceed with procedure.
[2024-09-03] MEDS: ceFAZolin 2 GM/D5W 50 ML 2 GM/50 ML BAG IVPB (12:38)
--- NOTE | 2024-09-03 13:38 | P.OP_ITS ---
Procedure Note - Detailed Date of Procedure 09/03/24 Pre-op Diagnosis Fistula In Ano Post-op Diagnosis Same Procedure Performed anal fistulotomy , removal seton Surgeon Bismark Sandra MD [employer] [facility] Anesthesia General Indications patient was seen 3 weeks ago and found to have a perirectal abscess with fistula in ANO. The abscess was drained and a seton was placed. The acute infection has resolved. Patient is taken to surgery now for anal fistulotomy with removal of the seton Findings seton in place and fistula easily demonstrated in the right anterior quadrant Description of Procedure patient was taken to surgery and induced into general anesthesia. He was then placed prone on the operating table. Prone doe-knife position was then established. The buttocks were taped apart. Prep and drape was carried out. The small Hill-Farias anoscope was used to review the anal rectal area. No other pathology other than the fistula was noted. we then changed to a medium Hill-Farias anoscope. With the seton still in place, I passed a probe from the external opening through the internal opening of the right anterior quadrant fistula. I then removed the seton. I unroof the fistula using the cautery. I curetted the fistula tract and then suctioned away any residual purulence or debris. Some cautery was used for hemostasis as well. The wound looked good. The rectum was dressed with Xeroform gauze, fluffs, ABDs and Medipore tape. Patient was returned to a supine position, awakened and extubated. He transferred then to recovery in good condition. Estimated Blood Loss -5 Drains No Packing No Pathology None sent Complications None Condition Stable Disposition PACU [facility] Billing Surgery - Charge Forward: Surgery Billing ( Removal of seton, anal fistulotomy.)
== END 2024-09-03 15:20 | disposition home or self-care (01) ==
PROVIDERS: PCP Family Medicine; Visit Provider Surgery
PROC: (CPT 46030; principal; 2024-09-03 12:30)
DX: K60.30 Anal fistula, unspecified (principal); I25.10 Atherosclerotic heart disease of native coronary artery without angina pectoris; I10 Essential (primary) hypertension; F17.220 Nicotine dependence, chewing tobacco, uncomplicated
CPT/HCPCS: 46030; 46275; A9270; J0330; J0690; J1100; J1885; J2003; J2250; J2405; J2704; J3010; J7120